=== PATIENT | male | born 1975 | race Caucasian/White ===

== ENCOUNTER 2020-07-04 14:59 | Inpatient (IN) | payer MEDICAID ==
[~2020-07-04] VITALS: Ht 175.3 cm; Wt 186.0 kg
--- NOTE | 2020-07-04 17:33 | NUR ---
ALLERGIC TO TWO MEDICATIONS PATIENT UNABLE TO REMEMBER, CALLING HIS
--- NOTE | 2020-07-04 17:35 | NUR ---
PATIENT DESATURATES TO 85% WITH GOOD WAVEFORM ON RA WHEN HE DOES NOT TAKE DEEP BREATHS
--- NOTE | 2020-07-04 17:43 | NUR ---
SPOKE TO DR JIANG REGARDING PATIENT DESATURATING LOWER TO 82% WHILE AWAKE AND DEEP BREATHED UP TO 95%, PT C/O SOB FOR 1 -2 WEEKS AND FEELING NOT WELL AND HIS NOTICED THAT HE WAS REALLY TIRED AND BREASTHING HARD, AIRBORNE PRECAUTIONS INITIATED WITH HEPA FILTER AND MAINTAINED
[2020-07-04] MEDS ORDERED: CefTRIAXone 2gm/D5W 50ml BAG 50 ML IV ONE (18:05)
[2020-07-04 18:32] LABS: BASOPHILS % (AUTO) 0.3 % (0-1); EOSINOPHILS # (AUTO) 0.1 X10'3 (0-0.9); EOSINOPHILS % (AUTO) 0.3 % (0-6); HEMATOCRIT 42.3 % (42.0-52.0); HEMOGLOBIN 13.5 g/dl (14.0-17.9); LYMPHOCYTES # (AUTO) 1.2 X10'3 (1.1-4.8); LYMPHOCYTES % (AUTO) 7.5 % (21-51); MEAN CORPUSCULAR VOLUME 90.7 FL (78-98); MEAN PLATELET VOLUME 8.1 FL (7.4-10.4); MONOCYTES # (AUTO) 1.1 X10'3 (0-0.9); MONOCYTES % (AUTO) 6.7 % (2-12); NEUTROPHILS # (AUTO) 13.3 X10'3 (1.8-7.7); NEUTROPHILS % (AUTO) 85.2 % (42-75); PLATELET COUNT 286 X10'3 (140-440); RED BLOOD COUNT 4.67 X10'6 (4.70-6.10); RED CELL DISTRIBUTION WIDTH 15.6 % (11.5-14.5); WHITE BLOOD COUNT 15.7 X10'3 (4.5-11.0)
[2020-07-04 18:41] LABS: D-DIMER 2.04 MG/L FEU (0-0.50); PARTIAL THROMBOPLASTIN TIME 26 SECONDS (22-32)
--- NOTE | 2020-07-04 18:46 | NUR ---
confirmed with pharmacist at [facility] on [address] allergies to CLINDAMYCIN & DOXYCYLINE
[2020-07-04 18:57] LABS: ALANINE AMINOTRANSFERASE 24 U/L (12-78); ALBUMIN 2.1 G/DL (3.4-5.0); ALBUMIN/GLOBULIN RATIO 0.3 (1.1-1.5); ALKALINE PHOSPHATASE 66 IU/L (46-116); ANION GAP 2 (8-16); ASPARTATE AMINO TRANSFERASE 21 U/L (10-37); BILIRUBIN,TOTAL 0.5 MG/DL (0.1-1.0); BLOOD UREA NITROGEN 21 MG/DL (7-18); BUN/CREATININE RATIO 16.8 (5.4-32.0); CALCIUM 8.7 MG/DL (8.5-10.1); CHLORIDE 96 MMOL/L (99-107); CREATININE 1.25 MG/DL (0.60-1.10); GLUCOSE 91 MG/DL (70-104); SODIUM 136 MMOL/L (135-145); TOTAL CARBON DIOXIDE 38.3 MMOL/L (24-32); TOTAL PROTEIN 8.4 G/DL (6.4-8.2); eGFR 63 ML/MIN
[2020-07-04] MEDS ORDERED: iohexol 350MG/ML 100ml bottle IV ONE (19:44)
[2020-07-04] MEDS ORDERED: NO HOME MEDS (21:20)
[2020-07-04] MEDS ORDERED: magnesium hydroxide 30ml (MOM) UD suspension PO PRN (21:45)
[2020-07-04] MEDS ORDERED: mag hydrox/Alum hydrox/simeth 30ml oral suspension PO PRN (21:45)
[2020-07-04] MEDS ORDERED: magnesium 4gm in 100ml NS 100 ML IV PRN (21:45)
[2020-07-04] MEDS ORDERED: morphine 2 MG/ML inj. syringe IV PRN (21:45)
[2020-07-04] MEDS ORDERED: ondansetron/PF 4mg/2ml inj IV PRN (21:45)
[2020-07-04] MEDS ORDERED: potassium Cl 20 mEq SR tablet PO PRN ×2 (21:45)
[2020-07-04] MEDS ORDERED: potassium Cl 40MEQ/1/2NS 520ml 520 ML IV PRN ×2 (21:45)
[2020-07-04] MEDS ORDERED: magnesium Cl slow-release 64mg tablet PO PRN (21:45)
[2020-07-04] MEDS ORDERED: magnesium 2GM in 50ml NS 50 ML IV PRN (21:45)
[2020-07-04] MEDS ORDERED: acetaminophen 325mg tablet PO PRN (21:45)
--- NOTE | 2020-07-04 23:14 | NUR ---
PT PLACED ON HOSPITAL BED
[2020-07-05 05:05] VITALS: BP 137/92
--- NOTE | 2020-07-05 05:05 | NUR ---
PATIENT ADMITTED TO ROOM 349B FROM ER FOR LEFT LEG CELLULITIS. PLACED COMFORTABLE IN BED. VITAL SIGNS TAKEN AND RECORDED.
[2020-07-05 06:25] LABS: BASOPHILS # (AUTO) 0.1 X10'3 (0-0.2); BASOPHILS % (AUTO) 0.7 % (0-1); EOSINOPHILS # (AUTO) 0.1 X10'3 (0-0.9); EOSINOPHILS % (AUTO) 0.8 % (0-6); HEMATOCRIT 37.5 % (42.0-52.0); HEMOGLOBIN 13.4 g/dl (14.0-17.9); LYMPHOCYTES # (AUTO) 1.2 X10'3 (1.1-4.8); LYMPHOCYTES % (AUTO) 11.4 % (21-51); MEAN CORPUSCULAR HEMOGLOBIN 32.3 PG (27.0-31.0); MEAN CORPUSCULAR HGB CONC 35.8 g/dL (33.0-36.5); MEAN CORPUSCULAR VOLUME 90.3 FL (78-98); MEAN PLATELET VOLUME 8.6 FL (7.4-10.4); MONOCYTES # (AUTO) 0.8 X10'3 (0-0.9); NEUTROPHILS # (AUTO) 8.1 X10'3 (1.8-7.7); NEUTROPHILS % (AUTO) 79.1 % (42-75); PLATELET COUNT 305 X10'3 (140-440); RED BLOOD COUNT 4.15 X10'6 (4.70-6.10); RED CELL DISTRIBUTION WIDTH 15.8 % (11.5-14.5); WHITE BLOOD COUNT 10.2 X10'3 (4.5-11.0)
--- NOTE | 2020-07-05 06:30 | NUR ---
Problems reprioritized. Patient report given, questions answered & plan of care reviewed with TIMMY ABRAHAM.
[2020-07-05 06:38] LABS: ALANINE AMINOTRANSFERASE 21 U/L (12-78); ALBUMIN 1.9 G/DL (3.4-5.0); ALBUMIN/GLOBULIN RATIO 0.3 (1.1-1.5); ALKALINE PHOSPHATASE 59 IU/L (46-116); ANION GAP -1 (8-16); ASPARTATE AMINO TRANSFERASE 27 U/L (10-37); BILIRUBIN,TOTAL 0.5 MG/DL (0.1-1.0); BLOOD UREA NITROGEN 16 MG/DL (7-18); BUN/CREATININE RATIO 15.8 (5.4-32.0); CALCIUM 8.5 MG/DL (8.5-10.1); CHLORIDE 99 MMOL/L (99-107); CREATININE 1.01 MG/DL (0.60-1.10); GLUCOSE 86 MG/DL (70-104); MAGNESIUM 2.3 MG/DL (1.5-2.4); POTASSIUM 5.1 MMOL/L (3.5-5.1); SODIUM 135 MMOL/L (135-145); eGFR 80 ML/MIN
--- NOTE | 2020-07-05 06:49 | NUR ---
Patient in room [facility]. I have received report from oCri Persaud RN and had the opportunity to ask questions and assume patient care.
[2020-07-05] MEDS: CefTRIAXone 2gm/D5W 50ml BAG 50 ML IV SCH (07:54)
[2020-07-05] MEDS: furosemide 40mg/4ml inj IV SCH ×2 (07:55→21:54)
[2020-07-05 08:00] VITALS: BP 134/74
[2020-07-05] MEDS: K and/or MAG REPLACEMENT MC SCH ×2 (08:00→20:00)
[2020-07-05 11:00] VITALS: BP 124/68
[2020-07-05] MEDS: HYDROcodone/acetaminophen 5mg/325mg tablet PO PRN (14:54)
--- NOTE | 2020-07-05 18:22 | NUR ---
Problems reprioritized. Patient report given, questions answered & plan of care reviewed with Yolanda ABRAHAM.
--- NOTE | 2020-07-05 18:30 | NUR ---
Patient in room [facility]. I have received report from TIMMY and had the opportunity to ask questions and assume patient care.
[2020-07-05 19:15] VITALS: BP 119/65
[2020-07-05] MEDS: metoprolol tartrate 12.5mg (1/2 tablet) PO SCH (21:53)
[2020-07-05] MEDS: enoxaparin 40mg/0.4ml syringe SQ SCH (21:54)
[2020-07-05] MEDS: lactobacillus rhamnosus 10,000 MMU CELLS/CAPSULE PO SCH (21:54)
[2020-07-05 23:00] VITALS: BP 111/74
[2020-07-06 06:07] LABS: BASOPHILS % (AUTO) 0.5 % (0-1); EOSINOPHILS # (AUTO) 0.1 X10'3 (0-0.9); EOSINOPHILS % (AUTO) 1.7 % (0-6); HEMATOCRIT 39.9 % (42.0-52.0); HEMOGLOBIN 12.7 g/dl (14.0-17.9); LYMPHOCYTES # (AUTO) 1.4 X10'3 (1.1-4.8); LYMPHOCYTES % (AUTO) 20.9 % (21-51); MEAN CORPUSCULAR HEMOGLOBIN 28.7 PG (27.0-31.0); MEAN CORPUSCULAR HGB CONC 31.9 g/dL (33.0-36.5); MEAN CORPUSCULAR VOLUME 89.9 FL (78-98); MEAN PLATELET VOLUME 7.7 FL (7.4-10.4); MONOCYTES # (AUTO) 0.8 X10'3 (0-0.9); MONOCYTES % (AUTO) 12.2 % (2-12); NEUTROPHILS # (AUTO) 4.4 X10'3 (1.8-7.7); NEUTROPHILS % (AUTO) 64.7 % (42-75); PLATELET COUNT 403 X10'3 (140-440); RED BLOOD COUNT 4.44 X10'6 (4.70-6.10); RED CELL DISTRIBUTION WIDTH 15.8 % (11.5-14.5); WHITE BLOOD COUNT 6.8 X10'3 (4.5-11.0)
[2020-07-06 06:32] LABS: GLUCOSE 112 MG/DL (70-104); SODIUM 139 MMOL/L (135-145)
[2020-07-06 06:33] LABS: ALANINE AMINOTRANSFERASE 20 U/L (12-78); ALBUMIN 1.9 G/DL (3.4-5.0); ALBUMIN/GLOBULIN RATIO 0.3 (1.1-1.5); ALKALINE PHOSPHATASE 53 IU/L (46-116); ANION GAP -3 (8-16); ASPARTATE AMINO TRANSFERASE 14 U/L (10-37); BILIRUBIN,TOTAL 0.3 MG/DL (0.1-1.0); BLOOD UREA NITROGEN 15 MG/DL (7-18); BUN/CREATININE RATIO 16.9 (5.4-32.0); CALCIUM 8.8 MG/DL (8.5-10.1); CHLORIDE 100 MMOL/L (99-107); CREATININE 0.89 MG/DL (0.60-1.10); MAGNESIUM 2.2 MG/DL (1.5-2.4); POTASSIUM 4.5 MMOL/L (3.5-5.1); TOTAL PROTEIN 7.7 G/DL (6.4-8.2); eGFR > 90 ML/MIN
--- NOTE | 2020-07-06 06:40 | NUR ---
PAGER ID: [phone] MESSAGE: Thomas Rubio 349B- Critical Lab value CO2 = 42 Please advise. Thank you. Rosibel Stuart/brooke [phone]
--- NOTE | 2020-07-06 06:46 | NUR ---
Problems reprioritized. Patient report given, questions answered & plan of care reviewed with TIMMY.
[2020-07-06] MEDS: metoprolol tartrate 12.5mg (1/2 tablet) PO SCH ×2 (07:53→20:02)
[2020-07-06] MEDS: lactobacillus rhamnosus 10,000 MMU CELLS/CAPSULE PO SCH ×2 (07:53→20:01)
[2020-07-06] MEDS: furosemide 40mg/4ml inj IV SCH ×2 (07:53→19:58)
[2020-07-06] MEDS: CefTRIAXone 2gm/D5W 50ml BAG 50 ML IV SCH (07:54)
[2020-07-06] MEDS: HYDROcodone/acetaminophen 5mg/325mg tablet PO PRN ×2 (07:55→16:37)
[2020-07-06] MEDS: K and/or MAG REPLACEMENT MC SCH ×2 (07:59→20:00)
[2020-07-06 08:00] VITALS: BP 149/81
[2020-07-06] MEDS: lisinopril 5mg tablet PO SCH (08:00)
[2020-07-06 11:00] VITALS: BP 130/73
--- NOTE | 2020-07-06 18:30 | NUR ---
Patient in room [facility]. I have received report from TIMMY ABRAHAM and had the opportunity to ask questions and assume patient care.
[2020-07-06 19:00] VITALS: BP 161/81
[2020-07-06] MEDS: enoxaparin 40mg/0.4ml syringe SQ SCH (20:03)
[2020-07-07] VITALS: BP 137/79
--- NOTE | 2020-07-07 06:24 | NUR ---
Problems reprioritized. Patient report given, questions answered & plan of care reviewed with MINI ABRAHAM.
[2020-07-07 06:46] LABS: BASOPHILS # (AUTO) 0.1 X10'3 (0-0.2); BASOPHILS % (AUTO) 0.7 % (0-1); EOSINOPHILS # (AUTO) 0.2 X10'3 (0-0.9); HEMATOCRIT 43.7 % (42.0-52.0); HEMOGLOBIN 14.1 g/dl (14.0-17.9); LYMPHOCYTES % (AUTO) 25.8 % (21-51); MEAN CORPUSCULAR HEMOGLOBIN 29.2 PG (27.0-31.0); MEAN CORPUSCULAR HGB CONC 32.2 g/dL (33.0-36.5); MEAN CORPUSCULAR VOLUME 90.7 FL (78-98); MEAN PLATELET VOLUME 7.4 FL (7.4-10.4); MONOCYTES # (AUTO) 0.9 X10'3 (0-0.9); MONOCYTES % (AUTO) 11.3 % (2-12); NEUTROPHILS # (AUTO) 4.6 X10'3 (1.8-7.7); NEUTROPHILS % (AUTO) 60.2 % (42-75); PLATELET COUNT 459 X10'3 (140-440); RED BLOOD COUNT 4.82 X10'6 (4.70-6.10); RED CELL DISTRIBUTION WIDTH 15.9 % (11.5-14.5); WHITE BLOOD COUNT 7.7 X10'3 (4.5-11.0)
[2020-07-07 07:00] VITALS: BP 127/75
--- NOTE | 2020-07-07 07:12 | NUR ---
Patient in room [facility]. I have received report from JARAD Maurer and had the opportunity to ask questions and assume patient care.
[2020-07-07 07:13] LABS: ALANINE AMINOTRANSFERASE 19 U/L (12-78); ALBUMIN 2.1 G/DL (3.4-5.0); ALBUMIN/GLOBULIN RATIO 0.3 (1.1-1.5); ALKALINE PHOSPHATASE 58 IU/L (46-116); ANION GAP 0 (8-16); ASPARTATE AMINO TRANSFERASE 14 U/L (10-37); BILIRUBIN,TOTAL 0.3 MG/DL (0.1-1.0); BLOOD UREA NITROGEN 15 MG/DL (7-18); BUN/CREATININE RATIO 15.5 (5.4-32.0); CALCIUM 9.3 MG/DL (8.5-10.1); CHLORIDE 100 MMOL/L (99-107); CREATININE 0.97 MG/DL (0.60-1.10); GLUCOSE 90 MG/DL (70-104); POTASSIUM 4.7 MMOL/L (3.5-5.1); SODIUM 142 MMOL/L (135-145); TOTAL PROTEIN 8.3 G/DL (6.4-8.2); eGFR 84 ML/MIN
[2020-07-07 07:15] LABS: TOTAL CARBON DIOXIDE 41.6 MMOL/L (24-32)
[2020-07-07 07:53] LABS: LARGE PLATELETS FEW; PLATELET ESTIMATE INCREASED; TOTAL CELLS COUNTED 100
[2020-07-07] MEDS: K and/or MAG REPLACEMENT MC SCH ×2 (08:00→19:55)
--- NOTE | 2020-07-07 08:13 | NUR ---
PAGER ID: [phone] MESSAGE: Belkys/ surgical. [id number]. Pt: Ramiro. RM 349-B. FYI: critical Lab: CO2 41.6. yesterday was 42. thanks
[2020-07-07] MEDS: lactobacillus rhamnosus 10,000 MMU CELLS/CAPSULE PO SCH ×2 (08:18→19:49)
[2020-07-07] MEDS: metoprolol tartrate 12.5mg (1/2 tablet) PO SCH ×2 (08:19→19:49)
[2020-07-07] MEDS: lisinopril 5mg tablet PO SCH (08:19)
[2020-07-07] MEDS: furosemide 40mg/4ml inj IV SCH ×2 (08:20→19:46)
[2020-07-07 11:00] VITALS: BP_SYST 116; BP_SYST 132; BP_DIAS 66; BP_DIAS 80
--- NOTE | 2020-07-07 18:35 | NUR ---
Problems reprioritized. Patient report given, questions answered & plan of care reviewed with JARAD Maurer.
--- NOTE | 2020-07-07 18:40 | NUR ---
Patient in room [facility]. I have received report from MINI ABRAHAM and had the opportunity to ask questions and assume patient care.
[2020-07-07] MEDS: enoxaparin 40mg/0.4ml syringe SQ SCH (19:51)
[2020-07-07 20:00] VITALS: BP 150/83
[2020-07-08] VITALS: BP 134/60
[2020-07-08 06:20] LABS: BASOPHILS # (AUTO) 0.1 X10'3 (0-0.2); BASOPHILS % (AUTO) 1.1 % (0-1); EOSINOPHILS # (AUTO) 0.1 X10'3 (0-0.9); EOSINOPHILS % (AUTO) 1.4 % (0-6); HEMOGLOBIN 14.5 g/dl (14.0-17.9); LYMPHOCYTES # (AUTO) 2.1 X10'3 (1.1-4.8); LYMPHOCYTES % (AUTO) 22.4 % (21-51); MEAN CORPUSCULAR HEMOGLOBIN 28.6 PG (27.0-31.0); MEAN CORPUSCULAR HGB CONC 32.3 g/dL (33.0-36.5); MEAN CORPUSCULAR VOLUME 88.4 FL (78-98); MEAN PLATELET VOLUME 7.1 FL (7.4-10.4); MONOCYTES # (AUTO) 0.9 X10'3 (0-0.9); MONOCYTES % (AUTO) 9.7 % (2-12); NEUTROPHILS % (AUTO) 65.4 % (42-75); PLATELET COUNT 546 X10'3 (140-440); RED BLOOD COUNT 5.08 X10'6 (4.70-6.10); RED CELL DISTRIBUTION WIDTH 15.7 % (11.5-14.5); WHITE BLOOD COUNT 9.2 X10'3 (4.5-11.0)
--- NOTE | 2020-07-08 06:30 | NUR ---
Problems reprioritized. Patient report given, questions answered & plan of care reviewed with MINI ABRAHAM.
[2020-07-08 06:40] LABS: ALANINE AMINOTRANSFERASE 18 U/L (12-78); ALBUMIN 2.1 G/DL (3.4-5.0); ALBUMIN/GLOBULIN RATIO 0.3 (1.1-1.5); ALKALINE PHOSPHATASE 57 IU/L (46-116); ANION GAP -1 (8-16); ASPARTATE AMINO TRANSFERASE 12 U/L (10-37); BILIRUBIN,TOTAL 0.5 MG/DL (0.1-1.0); BLOOD UREA NITROGEN 15 MG/DL (7-18); BUN/CREATININE RATIO 14.7 (5.4-32.0); CALCIUM 9.9 MG/DL (8.5-10.1); CHLORIDE 98 MMOL/L (99-107); CREATININE 1.02 MG/DL (0.60-1.10); GLUCOSE 97 MG/DL (70-104); POTASSIUM 4.8 MMOL/L (3.5-5.1); SODIUM 137 MMOL/L (135-145); TOTAL CARBON DIOXIDE 39.6 MMOL/L (24-32); TOTAL PROTEIN 8.2 G/DL (6.4-8.2); eGFR 79 ML/MIN
[2020-07-08 07:42] LABS: PLATELET ESTIMATE INCREASED; TOTAL CELLS COUNTED 100
[2020-07-08 07:47] LABS: LARGE PLATELETS FEW
[2020-07-08 08:00] VITALS: BP 108/49
[2020-07-08] MEDS: lactobacillus rhamnosus 10,000 MMU CELLS/CAPSULE PO SCH (08:01)
[2020-07-08 08:02] VITALS: BP_SYST 108
[2020-07-08] MEDS: lisinopril 5mg tablet PO SCH (08:02)
[2020-07-08] MEDS: furosemide 40mg/4ml inj IV SCH (08:02)
[2020-07-08] MEDS: metoprolol tartrate 12.5mg (1/2 tablet) PO SCH (08:02)
[2020-07-08] MEDS ORDERED: FURO40TA4 PO (10:16)
[2020-07-08] MEDS ORDERED: metoprolol tartrate tablet PO (10:16)
[2020-07-08] MEDS ORDERED: LISI-642 PO (10:16)
--- NOTE | 2020-07-08 12:52 | NUR ---
Pt discharged home in stable conditions. discharge and medication instructions given to pt. prescription of new meds provided. Pt was escorted to main lobby on [address]. Left the hospital via private vehicle accompanied by family.
== END 2020-07-08 12:10 | disposition home or self-care (01) | DRG 133 ==
LOC: ER 15:00 → ED HOLD 21:44 → SUR 3N 07-05 05:01
PROVIDERS: ADMIT Family Medicine; ATTEND Internal Medicine
PROC: B32T1ZZ Computerized Tomography (CT Scan) of Left Pulmonary Artery using Low Osmolar Contrast (ICD-10-PCS; 2020-07-04)
PROC: B3201ZZ Computerized Tomography (CT Scan) of Thoracic Aorta using Low Osmolar Contrast (ICD-10-PCS; 2020-07-04)
PROC: B32S1ZZ Computerized Tomography (CT Scan) of Right Pulmonary Artery using Low Osmolar Contrast (ICD-10-PCS; 2020-07-04)
PROC: 5A09357 Assistance with Respiratory Ventilation, Less than 24 Consecutive Hours, Continuous Positive Airway Pressure (ICD-10-PCS; principal; 2020-07-05)
DX: J96.20 Acute and chronic respiratory failure, unspecified whether with hypoxia or hypercapnia (principal); I11.0 Hypertensive heart disease with heart failure; F12.90 Cannabis use, unspecified, uncomplicated; I42.0 Dilated cardiomyopathy; I50.813 Acute on chronic right heart failure; I50.33 Acute on chronic diastolic (congestive) heart failure; J18.9 Pneumonia, unspecified organism; I27.20 Pulmonary hypertension, unspecified; L03.116 Cellulitis of left lower limb; G47.33 Obstructive sleep apnea (adult) (pediatric); I27.81 Cor pulmonale (chronic); F15.10 Other stimulant abuse, uncomplicated; Z20.822 Contact with and (suspected) exposure to COVID-19; E43 Unspecified severe protein-calorie malnutrition; E66.01 Morbid (severe) obesity due to excess calories; L03.115 Cellulitis of right lower limb; Z79.899 Other long term (current) drug therapy; Z86.711 Personal history of pulmonary embolism; Z68.44 Body mass index [BMI] 60.0-69.9, adult; Z88.1 Allergy status to other antibiotic agents
CPT/HCPCS: 36415; 71045; 71275; 80053; 83605; 83735; 83880; 84145; 84484; 85007; 85025; 85379; 85610; 85730; 87040; 87081; 87635; 93005; 93306; 93308; 94660; 94760; 96365; 99285; C9803; G0378; J0696; J1650; J1940; Q9967

== ENCOUNTER 2022-02-13 11:39 | Emergency (ER) | payer MEDICAID ==
[~2022-02-13] VITALS: Ht 177.8 cm; Wt 159.1 kg
[~2022-02-13 11:39] MED LIST: CEPH-585 PO; FURO-150 PO; LISI-642 PO; POTA-192 PO; metoprolol tartrate tablet PO
[2022-02-13 11:56] VITALS: BP 143/85
[2022-02-13] MEDS ORDERED: CEPH500C2 PO (13:38)
== END 2022-02-13 13:55 | disposition home or self-care (01) ==
LOC: ER 11:40
DX: S81.802A Unspecified open wound, left lower leg, initial encounter (principal); R60.0 Localized edema; I11.0 Hypertensive heart disease with heart failure; F15.10 Other stimulant abuse, uncomplicated; F12.10 Cannabis abuse, uncomplicated; Z88.1 Allergy status to other antibiotic agents; Z79.899 Other long term (current) drug therapy; Z79.2 Long term (current) use of antibiotics; X58.XXXA Exposure to other specified factors, initial encounter; Y93.89 Activity, other specified; Y92.89 Other specified places as the place of occurrence of the external cause; Y99.8 Other external cause status
CPT/HCPCS: 99283; A6446